=== PATIENT | male | born 1970 | race Caucasian/White ===

== ENCOUNTER 2019-04-08 13:01 | Inpatient (IN) ==
[2019-04-08] MEDS ORDERED: ZOFRAN IV ONE (13:32)
[2019-04-08] MEDS ORDERED: M.V.I.-12 10 ML, FOLIC ACID 1 MG, MAGNESIUM SULFATE 1 GM, THIAMINE 100 MG in NS 1,000 ML IV ONE (13:32)
[2019-04-08] MEDS ORDERED: ATIVAN IV ONE ×2 (13:32→14:33)
[2019-04-08 13:43] LABS: URINE SOURCE CLEAN CATCH
[2019-04-08 13:47] LABS: BILIRUBIN URINE NEGATIVE (NEGATIVE); BLOOD URINE TRACE (NEGATIVE); COLOR YELLOW; GLUCOSE URINE NEGATIVE (NEGATIVE); KETONE URINE NEGATIVE (NEGATIVE); LEUKOCYTES URINE NEGATIVE (NEGATIVE); NITRITE URINE NEGATIVE (NEGATIVE); PROTEIN URINE 30 mg/dL (NEGATIVE); SP GRAVITY URINE 1.006; TURBIDITY URINE CLEAR (CLEAR); UROBILINOGEN URINE NORMAL (NORMAL)
[2019-04-08 13:49] LABS: UR EPITHELIAL CELLS <10 /HPF (<10); URINE BACTERIA NEGATIVE /HPF; URINE RBC <10 /HPF (<10); URINE WBC <10 /HPF (<10)
[2019-04-08 14:03] LABS: BASO# 0.04 X1000 (0.0-0.2); BASO% 0.6 % (0.0-0.8); EOS# 0.02 X1000 (0.0-0.7); EOS% 0.3 % (0.0-10.0); HEMATOCRIT 54.3 % (42.0-52.0); HEMOGLOBIN 19.7 g/dL (14.0-18.0); LYMPH# 1.73 X1000 (1.2-3.4); LYMPH% 26.5 % (20.5-51.1); MCHC 36.3 g/dL (33-37); MCV 93.8 FL (81-99); MONO# 0.57 X1000 (0.11-0.59); MONO% 8.7 % (1.7-9.3); MPV 9.1 FL (7.4-10.4); NEUT# 4.17 X1000 (1.4-6.5); NEUT% 63.9 % (42.2-75.2); PLT 180 X1000 (130-400); RBC 5.79 XMIL (4.7-6.1); RDW 12.4 % (11.5-14.5); WBC 6.53 X1000 (4.8-10.8)
[2019-04-08 14:14] LABS: UR AMPHETAMINES QUAL NONE DETECTED (NONE DETECT); UR BARBITUATES QUAL NONE DETECTED (NONE DETECT); UR BENZODIAZEPIN QUAL NONE DETECTED (NONE DETECT); UR CANNABINOIDS QUAL PRESUMPTIVE POSITIVE (NONE DETECT); UR COCAINE QUAL NONE DETECTED (NONE DETECT); UR METHADONE QUAL NONE DETECTED (NONE DETECT); UR OPIATES QUAL NONE DETECTED (NONE DETECT); UR OXYCODONE QUAL NONE DETECTED (NONE DETECT); UR PCP QUAL NONE DETECTED (NONE DETECT)
[2019-04-08 14:25] LABS: ACETAMINOPHEN < 1.2 ug/mL (10-30); AGAP 20; ALB/GLOB RATIO 1.2; ALBUMIN 4.9 g/dL (3.5-5.0); ALKALINE PHOSPHATASE 98 U/L (32-122); BUN 10 mg/dL (8-22); CALCIUM 9.8 mg/dL (8.8-10.2); CHLORIDE 96 mmol/L (98-107); COSMO 276; CREATININE 0.7 mg/dL (0.7-1.2); ESTIMATED GFR > 60; GLUCOSE 117 mg/dL (70-104); GOT 125 U/L (10-34); GPT 61 U/L (10-44); LIPASE 63 U/L (13-60); MAGNESIUM 1.8 mg/dL (1.5-2.7); POTASSIUM 3.8 mmol/L (3.5-5.1); SALICYLATES < 3.00 mg/dL (3-10); SODIUM 138 mmol/L (136-145); TCO2 22 mmol/L (25-35); TOTAL BILIRUBIN 0.55 mg/dL (0.20-1.00); TOTAL PROTEIN 9.1 g/dL (6.3-8.3)
[2019-04-08 14:31] LABS: ACETONE SERUM NEGATIVE (NEGATIVE)
[2019-04-08] MEDS ORDERED: NICODERM PATCH TD ONE (14:34)
--- NOTE | 2019-04-08 14:39 | PROVIDER DOCUMENTATION ---
This chart was entered by Dinorah Franco Scribe, acting as scribe for Cole Longoria MD. [id number] Abuse/Overdose - General Chief Complaint: Req. Detox Stated Complaint: PSYCH DETOX Time Seen by Provider: 04/08/19 13:15 Source: patient Allergies/Adverse Reactions: Allergies Allergy/AdvReac Type Severity Reaction Status Date / Time meloxicam [From Mobic] Allergy Mild RASH Verified 01/14/17 08:52 Home Medications: Home Medication List Medication Instructions Recorded Confirmed Last Taken Type Celecoxib [Celebrex] 200 mg PO DAILY 01/14/17 01/14/17 Unknown History Metformin [Glucophage] 500 mg PO DAILY 01/14/17 01/14/17 Unknown History - History of Present Illness-Drug/Alcohol Nature of Presenting Problem: Patient is a 48 year old male who presents with tremors, nausea, vomiting and suicidal thoughts. States he is detoxing from alcohol. Reports he drinks 8 to 12 beers daily. States having a beer 1 hours ago. Denies hallucinations. This episode of drinking or use began:: this afternoon Severity: reports: mild Situational problems related to:: reports: N/A Psychiatric Complaints: reports: suicidal ideation Associated Symptoms: reports: nausea, vomiting, other (tremors) Any injuries associated with this episode of intoxication?: No Similar Symptoms Previously?: Yes Recently seen or treated by another doctor?: Yes - Substance Abuse Substance Use: reports: alcohol - Alcohol Abuse Last Drink?: 12:00 Usually drinks:: daily Review of Systems - Adult - REVIEW OF SYSTEMS - ADULT Constitutional: reports: no symptoms reported. denies: chills, fever, fatique Eyes: reports: no symptoms reported Ears, Nose, Mouth & Throat: reports: no symptoms reported Cardiovascular: reports: no symptoms reported Respiratory: reports: no symptoms reported Gastrointestinal: reports: see HPI, nausea, vomiting. denies: abdominal pain, diarrhea Genitourinary: reports: no symptoms reported Musculoskeletal: reports: no symptoms reported Integumentary: reports: no symptoms reported Neurological: reports: see HPI, tremors. denies: dizziness/vertigo, headache/migraines Psychiatric: reports: see HPI, suicidal thoughts. denies: anxiety, insomnia Endocrine: reports: no symptoms reported Hematologic/Lymphatic: reports: no symptoms reported Allergic/Immunologic: reports: no symptoms reported All Other Systems: Reviewed and Negative Past History - Adult - PAST MEDICAL HISTORY-ADULT Review of Records: reports: Old Records Reviewed, Nursing Assessment Review, Medications Reviewed, Social history reviewed & non-contributory. Major Childhood Illnesses: reports: denies history Cardiovascular: reports: HTN Respiratory: reports: denies history Gastrointestinal: reports: denies history Obstetrical/Gynecological: reports: denies history Genitourinary: reports: denies history Musculoskeletal: reports: chronic pain, intervertebral disc disease Neurological: reports: denies history Psychiatric: reports: anxiety Endocrine/Immune: reports: Diabetes Other Conditions: reports: other - PRIOR SURGERIES/PROCEDURES Surgical/Procedure History: reports: back/neck (back) - IMMUNIZATION STATUS Childhood Immunizations: See Nurse Assessment Flu Vaccine: See Nurse Assessment - FAMILY HISTORY Family History: reviewed, not pertinent, diabetes - SOCIAL HISTORY Smoking: cigarettes, greater than 1 pack/day Provider spent 3-5 mins advising pt. on dangers of tobacco.: Discussed manners to quit use, and f/u contacts for add'l counseling. Substance Use: alcohol Alcohol Use Frequency: every day Number of drinks per typical drinking period:: 11-15 drinks Physical Exam-General - PHYSICAL EXAM-ADULT Initial Vital Signs Reviewed: Yes - CONSTITUTIONAL General Appearance: alert, anxious. negative: lethargic - EYES Eyes: PERRL/EOMI, pink conjunctivae. negative: scleral icterus - HEAD, EARS, NOSE, MOUTH & THROAT HENMT: normocephalic/atraumatic, moist mucous membranes. negative: angioedema - RESPIRATORY Respiratory: chest non-tender, lungs clear, normal breath sounds. negative: rales, rhonchi - CARDIOVASCULAR Cardiovascular: normal peripheral pulses, tachycardia. negative: regular rate, rhythm - GASTROINTESTINAL (ABDOMEN) Abdominal Exam: normal bowel sounds, non tender, soft. negative: guarding - MUSCULOSKELETAL Extremity: normal inspection. negative: deformity, erythema - SKIN Integumentary: normal color, normal turgor, warm/dry. negative: cyanosis, ecchymosis, jaundice - NEUROLOGIC Neurologic: other (tremors to bilateral hands). negative: aphasia, facial droop - PSYCHIATRIC Psych/Mental Status: oriented x 3, anxious. negative: paranoid Progress - PLAN OF CARE/RESULTS Progress/Plan/Lab Results: Vital Signs - 8 hr 04/08/19 13:10 Temperature 98.0 F Pulse Rate 126 H Respiratory Rate 24 Blood Pressure 156/119 O2 Sat by Pulse Oximetry 96 Laboratory Results - last 24 hr 04/08/19 04/08/19 04/08/19 13:27 13:27 13:27 WBC 6.53 RBC 5.79 Hgb 19.7 H Hct 54.3 H MCV 93.8 MCH 34.0 H MCHC 36.3 RDW Std Deviation 12.4 Plt Count 180 MPV 9.1 Immature Gran % (Auto) 0.0 Neut % (Auto) 63.9 Lymph % (Auto) 26.5 Hampton % (Auto) 8.7 Eos % (Auto) 0.3 Baso % (Auto) 0.6 Immature Gran # (Auto) 0.00 Neut # (Auto) 4.17 Lymph # (Auto) 1.73 Hampton # (Auto) 0.57 Eos # (Auto) 0.02 Baso # (Auto) 0.04 Sodium 138 Potassium 3.8 Chloride 96 L Carbon Dioxide 22 L Anion Gap 20 BUN 10 Creatinine 0.7 Estimated GFR/1.73 m2 > 60 BUN/Creatinine Ratio 14 Glucose 117 H Calculated Osmolality 276 Calcium 9.8 Magnesium 1.8 Total Bilirubin 0.55 AST 125 H ALT 61 H Alkaline Phosphatase 98 Ammonia Total Protein 9.1 H Albumin 4.9 Globulin 4.2 Albumin/Globulin Ratio 1.2 Lipase 63 H Urine Source Urine Color Urine Turbidity Urine pH Ur Specific Jewell Urine Protein Ur Glucose (Stick) Ur Ketones (Stick) Urine Blood Urine Nitrite Urine Bilirubin Urobilinogen Dipstick Urine Leukocytes Urine WBC (Auto) Urine RBC (Auto) U Epithel Cells (Auto) Urine Bacteria (Auto) Salicylates < 3.00 L Urine Opiates Screen Ur Oxycodone Screen Ur Methadone, Qual Acetaminophen < 1.2 L Ur Barbiturates Screen Ur Phencyclidine Scrn Ur Amphetamines Screen U Benzodiazepines Scrn Urine Cocaine Screen U Cannabinoids Screen Plasma/Serum Ethyl Alc 284 H Acetone Level NEGATIVE 04/08/19 04/08/19 04/08/19 13:27 13:27 13:51 WBC RBC Hgb Hct MCV MCH MCHC RDW Std Deviation Plt Count MPV Immature Gran % (Auto) Neut % (Auto) Lymph % (Auto) Hampton % (Auto) Eos % (Auto) Baso % (Auto) Immature Gran # (Auto) Neut # (Auto) Lymph # (Auto) Hampton # (Auto) Eos # (Auto) Baso # (Auto) Sodium Potassium Chloride Carbon Dioxide Anion Gap BUN Creatinine Estimated GFR/1.73 m2 BUN/Creatinine Ratio Glucose Calculated Osmolality Calcium Magnesium Total Bilirubin AST ALT Alkaline Phosphatase Ammonia 38 Total Protein Albumin Globulin Albumin/Globulin Ratio Lipase Urine Source CLEAN CATCH Urine Color YELLOW Urine Turbidity CLEAR Urine pH 6.0 Ur Specific Jewell 1.006 Urine Protein 30 A Ur Glucose (Stick) NEGATIVE Ur Ketones (Stick) NEGATIVE Urine Blood TRACE A Urine Nitrite NEGATIVE Urine Bilirubin NEGATIVE Urobilinogen Dipstick NORMAL Urine Leukocytes NEGATIVE Urine WBC (Auto) <10 Urine RBC (Auto) <10 U Epithel Cells (Auto) <10 Urine Bacteria (Auto) NEGATIVE Salicylates Urine Opiates Screen NONE DETECTED Ur Oxycodone Screen NONE DETECTED Ur Methadone, Qual NONE DETECTED Acetaminophen Ur Barbiturates Screen NONE DETECTED Ur Phencyclidine Scrn NONE DETECTED Ur Amphetamines Screen NONE DETECTED U Benzodiazepines Scrn NONE DETECTED Urine Cocaine Screen NONE DETECTED U Cannabinoids Screen PRESUMPTIVE POSITIVE A Plasma/Serum Ethyl Alc Acetone Level Orders Category Date Time Status ACETAMINOPHEN [TDM] Stat Lab 04/08/19 13:27 Completed ACETONE SERUM [CHEM] Stat Lab 04/08/19 13:27 Completed ALCOHOL BLOOD Stat Lab 04/08/19 13:27 Completed AMMONIA [CHEM] Stat Lab 04/08/19 13:51 Completed CBC WITH DIFF [HEME] Stat Lab 04/08/19 13:27 Completed COMPREHENSIVE METABOLIC PANEL [CHEM] Stat Lab 04/08/19 13:27 Completed LIPASE [CHEM] Stat Lab 04/08/19 13:27 Completed MAGNESIUM [CHEM] Stat Lab 04/08/19 13:27 Completed SALICYLATES [TDM] Stat Lab 04/08/19 13:27 Completed UA NIMS W/REFLEX CULT [URINALYSIS] Stat Lab 04/08/19 13:27 Completed URINE DRUG SCREEN Stat Lab 04/08/19 13:27 Completed Lorazepam [Ativan] Med 04/08/19 13:32 Discontinued 2 mg IV NOW ONE Lorazepam [Ativan] Med 04/08/19 14:33 Discontinued 2 mg IV NOW ONE Mvi [M.v.i.-12] 10 ml Med 04/08/19 13:32 Discontinued Folic Acid 1 mg Magnesium Sulfate 1 gm Thiamine 100 mg 0.9% Sodium Chloride Inj [Ns] 1,000 ml IV NOW Nicotine Patch [Nicoderm Patch] Med 04/08/19 14:34 Discontinued 14 mg TD NOW ONE Ondansetron [Zofran] Med 04/08/19 13:32 Discontinued 4 mg IV NOW ONE Result Diagrams: 04/08/19 13:27 04/08/19 13:27 - REASSESSMENT Reassessment #1 Time Reassessed: 14:39 Status: improving (STILL SHAKY AND TREMULOUS IN ER. WILL ADMIT) - CONSULTS/PCP/HOSPITALIST Notification #1 *Consult/PCP/Hospitalist*: AISSATOU Richmond for Hospitalist Time Discussed: 14:35 Reason/Comments: Dr. Longoria consulted with Yi about patient. Consult Disposition: Will see in ED, Admit Departure - Departure Date of Disposition Decision: 04/08/19 Time of Disposition Decision: 14:36 DIAGNOSIS: Alcohol withdrawal Disposition: ADMITTED INPATIENT 09 Certified Medical Emergency: Emergent Condition: Stable Referrals and Follow-Ups: Franco Stockton Jr, MD [Primary Care Provider] - - Critical Care Note This patient required my direct & personal management of CC.: No Attestation - Physician/ TOMMIE Attestation Patient care was provided by Advanced Practice Provider:: No The physician spent face to face time with patient:: Yes Advanced Practice Provider documentation review:: Supervising physician onsite and consulted in the evaluation and care of this patient. The physician did have a face to face encounter with the patient. This chart was documented by the indicated scribe, (Dinorah Franco Scribe) and accurately reflects the services I performed and decisions made by me, Cole Longoria MD, as attested by the provider's signature.
[2019-04-08] MEDS ORDERED: ZOFRAN IV PRN (15:26)
[2019-04-08] MEDS ORDERED: ROBAXIN PO PRN (15:29)
[2019-04-08] MEDS ORDERED: ATARAX PO PRN (15:29)
[2019-04-08] MEDS ORDERED: BENTYL PO PRN (15:29)
[2019-04-08] MEDS ORDERED: CATAPRES PO PRN (15:34)
--- NOTE | 2019-04-08 16:24 | HISTORY AND PHYSICAL ---
CHIEF COMPLAINT: I am going through alcohol withdrawal. HISTORY OF PRESENT ILLNESS: This is a 48-year-old gentleman with a history of insulin dependent diabetes mellitus type 2 and alcohol use and abuse. He presents to the emergency room complaining of tremors, nausea, vomiting and suicidal thoughts. He states that he normally drinks 12 to 24 beers a day although over the last week he has got down to 8 to 12 beers trying to detox himself but says that he realizes he cannot do this. He has developed tremors with nausea, vomiting. He started having diarrhea during the night last night. He does state that he does not want to live like this. He states he does not have a plan to kill himself although he does not think life is worth living and he does not want continue living with alcohol. He denies any black or bloody vomitus or stools. PAST MEDICAL HISTORY: Hypertension, diabetes mellitus type 2, chronic back pain. PAST SURGICAL HISTORY: Back surgery. SOCIAL HISTORY: He drinks 12 to 24 beers a day. He smokes 1 to 2 packs of cigarettes a day and he does use marijuana. He has used meth in the past. ALLERGIES: Meloxicam which causes a rash. HOME MEDICATIONS: None. REVIEW OF SYSTEMS: Discussed with patient with pertinent positives stated in the HPI. He denied any syncope, dizziness, chest pain, palpitations, any shortness of breath, cough, fever, chills, night sweats, recent weight loss or weight gain, any constipation, black or bloody vomitus or stools, hematuria, dysuria, frequency, urgency. PHYSICAL EXAMINATION: GENERAL: This is a 48-year-old gentleman who is sitting up in bed in mild distress. VITAL SIGNS: Blood pressure was 160/100 with a heart rate of 131, respirations are 22, temperature is 98 degrees, room air saturations 96 to 100 percent. HEENT: Pupils equal, round, react to light EOMs are intact sclerae anicteric. Head is normocephalic, atraumatic. Mucous membranes are moist. NECK: Supple. Trachea midline. CARDIOVASCULAR: Regular rate and rhythm. He is tachycardic. S1, S2 appreciated. No murmurs. Calves are nontender bilateral, peripheral pulses palpable x4 extremities. PULMONARY: Breath sounds clear. No increased work of breathing noted. Chest rises and falls symmetric respiration. GASTROINTESTINAL: Abdomen soft, nontender, nondistended with bowel sounds in all 4 quadrants. : He has no CVA or suprapubic tenderness. SKIN: Warm and dry. NEUROLOGIC: He is alert, oriented x3. He does have tremors noted to bilateral hands. LABS: WBC is 6.5 with hemoglobin 19.7, hematocrit 53 and platelets of 180,000. Sodium 138, potassium 3.8, BUN 10, creatinine 0.7 with a glucose of 117. AST is 125, ALT 61 with a lipase of 63. Urine drug screen is presumptive positive for cannabinoids. Blood alcohol is 284. Acetone is negative. ASSESSMENT AND PLAN: 1. Alcohol withdrawal. 2. Nausea, vomiting and diarrhea secondary to #1. 3. Cannabinoid use. 4. Diabetes mellitus type 2 with noncompliance. 5. Hypertension noncompliant. 6. Deep vein thrombosis prophylaxis and gastrointestinal prophylaxis. 7. Suicidal ideation.Once the patient is medically cleared will call Milly Kraus for evaluation. Patient will be admitted to the ICU for close monitoring. continue with IV hydration, giving Zofran for nausea. start a Librium taper and Ativan IV q.4 hours p.r.n., clonidine 0.1 q.8 hours p.r.n. for his blood pressure, this will also help with his withdrawal. Bentyl, Atarax and Robaxin for withdrawal symptoms p.r.n. pattern blood glucose with sliding scale insulin. ammonia level, get CBC, CMP, magnesium and lipase in the morning. NPO as long as he is having nausea, vomiting. deep vein thrombosis prophylaxis will use SCDs. Will hold off on any anticoagulation as we are unsure his status with varices. gastrointestinal prophylaxis Protonix IV. Plan was discussed with Dr. Howard. Further treatments pending hospital course. Dictated by AISSATOU Orellana for Froylan Howard MD cc: AISSATOU Orellana Agree with the above. the following is my own face to face assessment. moderately tremulous and slightly tachycardic on exam. likely mild alcohol withdrawal. some question of suicidal ideation in the ED but on my discussion with him patient states that he is "tired of living like this," but states that this has motivated him to seek help for his alcoholism rather than made him suicidal. he denies suicidal ideation, he denies plan to hurt himself or others. also discussed with patient's who denies hearing him say anything that would suggest he planned on hurting himself. BRAN
[2019-04-08] MEDS: HUMALOG SUBQ SCH ×2 (16:57→23:07)
[2019-04-08] MEDS: NS 1,000 ML IV SCH (17:03)
[2019-04-08] MEDS: LIBRIUM PO SCH ×2 (17:04→23:06)
[2019-04-08] MEDS: SODIUM CHLORIDE 0.9% INJ SCH (17:04)
[2019-04-08] MEDS: PROTONIX IV SCH (17:04)
[2019-04-08] MEDS: ATIVAN IV PRN (23:06)
[2019-04-09] MEDS: NS 1,000 ML IV SCH ×5 (00:32→22:51)
[2019-04-09] MEDS: PROTONIX IV SCH ×2 (03:55→15:44)
[2019-04-09] MEDS: LIBRIUM PO SCH ×4 (04:01→22:52)
[2019-04-09 05:13] LABS: BASO# 0.03 X1000 (0.0-0.2); BASO% 0.5 % (0.0-0.8); EOS# 0.11 X1000 (0.0-0.7); EOS% 1.9 % (0.0-10.0); HEMATOCRIT 48.4 % (42.0-52.0); HEMOGLOBIN 17.1 g/dL (14.0-18.0); LYMPH% 23.9 % (20.5-51.1); MCH 33.9 PG (27-31); MCHC 35.3 g/dL (33-37); MCV 95.8 FL (81-99); MONO# 0.63 X1000 (0.11-0.59); MONO% 10.8 % (1.7-9.3); MPV 9.4 FL (7.4-10.4); NEUT# 3.68 X1000 (1.4-6.5); NEUT% 62.9 % (42.2-75.2); PLT 133 X1000 (130-400); RBC 5.05 XMIL (4.7-6.1); RDW 12.4 % (11.5-14.5); WBC 5.85 X1000 (4.8-10.8)
[2019-04-09 05:43] LABS: AGAP 14; ALB/GLOB RATIO 1.1; ALBUMIN 3.6 g/dL (3.5-5.0); ALKALINE PHOSPHATASE 70 U/L (32-122); BUN 10 mg/dL (8-22); CALCIUM 8.2 mg/dL (8.8-10.2); CHLORIDE 103 mmol/L (98-107); COSMO 279; CREATININE 0.6 mg/dL (0.7-1.2); ESTIMATED GFR > 60; GLUCOSE 70 mg/dL (70-104); GOT 103 U/L (10-34); GPT 48 U/L (10-44); MAGNESIUM 1.6 mg/dL (1.5-2.7); POTASSIUM 3.7 mmol/L (3.5-5.1); SODIUM 141 mmol/L (136-145); TCO2 24 mmol/L (25-35); TOTAL PROTEIN 6.8 g/dL (6.3-8.3)
[2019-04-09] MEDS: HUMALOG SUBQ SCH ×4 (06:07→22:53)
[2019-04-09] MEDS: ATIVAN IV PRN ×3 (07:56→21:22)
--- NOTE | 2019-04-09 09:06 | Diag Imaging Result Doc PS360 ---
EXAM: CHEST-PORTABLE 04/09/2019 HISTORY: cough, borderline hypoxia TECHNIQUE: AP portable at 0848 COMMENT: There is ill-defined opacity in the right lower lobe which appears worse than on 07/03/2016. The heart size and primary vascularity are within normal limits. IMPRESSION: Minimal pneumonia right lower lobe. Electronically signed by Klaus Corado 04/09/2019 9:04 AM
[2019-04-09] MEDS: PAXIL PO SCH (09:42)
[2019-04-09] MEDS: NICODERM PATCH TD SCH (12:25)
[2019-04-09] MEDS ORDERED: ROCEPHIN 1 GM in NS 50 ML IV SCH (13:45)
--- NOTE | 2019-04-09 14:07 | PROGRESS NOTE ---
DATE: 04/09/2019 INTERVAL HISTORY: Patient reports some generalized malaise and a couple episodes diarrhea this morning which has improved. No vomiting, minimal tremulousness. The patient does both today and yesterday has endorsed feeling depressed but continues to deny any suicidal thoughts. Denies ever having a plan. His corroborates that she is unaware of any statements suggesting that he wanted to hurt himself or others. On admission he did say that he was tired of living this way but seemed to be suggesting that he wanted to change what he was doing rather than end his life. REVIEW OF SYSTEMS: Twelve point review of systems negative except as per interval history. LABS: WBC 5.8, hemoglobin 17.1, hematocrit 48.4, platelets 133,000. Sodium 141, potassium 3.7, BUN 10, creatinine 0.6, glucose 70, mag 1.6, bilirubin 0.9, AST 103, ALT 48, alkaline phosphatase 70. IMAGING: Chest x-ray, minimal pneumonia and right lower lobe. VITALS: T-max 97.8 degrees, pulse 76, respirations 18, BP 138/88, O2 saturation 99% on room air currently, down to 90% earlier with respiratory rate of 27. PHYSICAL EXAMINATION: General: No acute distress. Vitals above. HEENT: Normocephalic, atraumatic. Moist membranes. No scleral icterus. Cardiovascular: Regular rate and rhythm. No murmurs noted. Pulmonary: Slight right basilar crackles otherwise clear to auscultation. Abdomen: Soft, nontender, nondistended. Bowel sounds positive. Extremities: Peripheral pulses intact. No clubbing, cyanosis. Neurologic: Cranial nerves grossly intact. Mild tremor in the hands and a resting tremor. No focal deficits. Psychiatric: Normal mood and affect. No signs of hallucinations. Oriented x3. Skin: No new rashes or lesions identified. ASSESSMENT AND PLAN: 1. Alcohol dependence and withdrawal. Patient still some mild withdrawal symptoms with occasional tachycardia and ongoing tremulousness but current medication seems to be controlling his symptoms reasonably well, did have couple episodes of diarrhea this morning but has not been repeated since then. Continue to treat with Librium and symptomatic control. 2. Possible pneumonia, patient with some borderline hypoxia overnight and increased respiratory rate. Some slight crackles on exam. Chest x-ray obtained which does seem to show slight right lower lobe pneumonia. Will go and start him on Rocephin and azithromycin and monitor. Does not appear to be septic at this time. 3. Tobacco abuse, possibly early chronic obstructive pulmonary disease. The patient counseled on cessation and been given nicotine patch. 4. Diabetes. Patient only metformin and at a low dose at home. Glucoses here have been reasonably well controlled without any insulin but will monitor as he begins to eat more. 5. Hypertension reasonable control on current regimen, monitor. 6. Transaminitis. Patient with likely early cirrhosis and mild alcoholic hepatitis. Liver function tests are roughly stable. No need for acute intervention at this time. [facility]
[2019-04-09] MEDS ORDERED: ZITHROMAX 500 MG/NS 500 MG/250 ML IVPB IV SCH (15:00)
[2019-04-09] MEDS: SODIUM CHLORIDE 0.9% INJ SCH (15:44)
[2019-04-10] MEDS: ATIVAN IV PRN ×2 (02:15→06:44)
[2019-04-10] MEDS: PROTONIX IV SCH (04:14)
[2019-04-10] MEDS: LIBRIUM PO SCH (04:14)
[2019-04-10 06:40] LABS: BASO# 0.03 X1000 (0.0-0.2); BASO% 0.6 % (0.0-0.8); EOS# 0.08 X1000 (0.0-0.7); EOS% 1.6 % (0.0-10.0); HEMATOCRIT 46.7 % (42.0-52.0); HEMOGLOBIN 16.4 g/dL (14.0-18.0); LYMPH# 0.92 X1000 (1.2-3.4); LYMPH% 18.4 % (20.5-51.1); MCHC 35.1 g/dL (33-37); MCV 96.7 FL (81-99); MONO# 0.49 X1000 (0.11-0.59); MONO% 9.8 % (1.7-9.3); MPV 9.4 FL (7.4-10.4); NEUT# 3.49 X1000 (1.4-6.5); NEUT% 69.6 % (42.2-75.2); PLT 122 X1000 (130-400); RBC 4.83 XMIL (4.7-6.1); RDW 12.2 % (11.5-14.5); WBC 5.01 X1000 (4.8-10.8)
[2019-04-10] MEDS: NS 1,000 ML IV SCH (06:47)
[2019-04-10] MEDS: HUMALOG SUBQ SCH (06:49)
[2019-04-10 06:57] LABS: AGAP 14; ALB/GLOB RATIO 1.2; ALBUMIN 3.8 g/dL (3.5-5.0); ALKALINE PHOSPHATASE 72 U/L (32-122); BUN 7 mg/dL (8-22); CALCIUM 8.9 mg/dL (8.8-10.2); CHLORIDE 103 mmol/L (98-107); COSMO 277; CREATININE 0.7 mg/dL (0.7-1.2); ESTIMATED GFR > 60; GLUCOSE 88 mg/dL (70-104); GOT 72 U/L (10-34); GPT 42 U/L (10-44); POTASSIUM 3.9 mmol/L (3.5-5.1); SODIUM 140 mmol/L (136-145); TCO2 23 mmol/L (25-35); TOTAL BILIRUBIN 0.87 mg/dL (0.20-1.00); TOTAL PROTEIN 7.1 g/dL (6.3-8.3)
[2019-04-10 07:55] VITALS: BP 137/90
[2019-04-10] MEDS: PAXIL PO SCH (08:27)
[2019-04-10] MEDS: NICODERM PATCH TD SCH (08:27)
--- NOTE | 2019-04-10 14:42 | DISCHARGE SUMMARY ---
ADMISSION DATE: 04/08/2019 DISCHARGE DATE: 04/10/2019 DATE OF LEAVING AGAINST MEDICAL ADVICE: 04/10/2019. ADMISSION DIAGNOSES: 1. Alcohol withdrawal. 2. Nausea, vomiting, and diarrhea secondary to #1. 3. Cannabinoid use. 4. Diabetes mellitus type 2 with noncompliance. 5. Hypertension, noncompliance. 6. Suicidal ideation. DIAGNOSES AT TIME OF LEAVING AGAINST MEDICAL ADVICE: 1. Alcohol dependence with withdrawal. 2. Possible pneumonia. Borderline hypoxia overnight and increased respiratory rate. Possible right lower lobe pneumonia. 3. Tobacco abuse with possible early chronic obstructive pulmonary disease. 4. Diabetes, reasonably controlled. 5. Hypertension, uncontrolled. 6. Transaminitis. Possible early cirrhosis with mild alcoholic hepatitis. CONSULTATIONS: None. SURGERIES AND PROCEDURES: None. HOSPITAL COURSE: On 04/08/2019, Mr. Surinder Stratton, who is a 48-year-old male with a medical history of insulin-dependent diabetes mellitus type 2 and alcohol abuse and use, presented to the emergency department with complaints of tremors, nausea, vomiting, suicidal ideations. Stated that he normally drinks 12 to 24 beers per day but had not been able to drink but maybe 8 to 12 trying to detox himself and developed tremors, nausea, vomiting along with diarrhea. Stated that he did not want to live like that but did not have a plan to kill himself. He does not feel that life is worth living and did not want to continue living with alcohol. He was admitted to ICU for close observation to evaluate suicidal ideations and allow for alcohol withdrawal detox. He had a chest x-ray, which showed possible right lower lobe pneumonia although white blood cells remain stable. By the 2nd day, the suicidal thoughts were denied. It was more of a suggestion that he just did not want to live his life with alcohol rather than end his life. Over his 1st night in the hospital, he did have some mild borderline hypoxia, it did not require oxygen, and had some slight crackles, and the chest x-ray revealed that he had a right lower lobe pneumonia. He was initiated on Rocephin and azithromycin, was transferred on day 2 to the medical floor. Remained stable but decided he would leave against medical advice this morning despite the need for antibiotic therapy. DISCHARGE VITAL SIGNS: Temperature 97.4 degrees, heart rate 71, respiratory rate 20, blood pressure 137/90, O2 saturation 98% on room air. LAB DATA: White blood cells 5000, hemoglobin 16, hematocrit 46, platelet count 122. Sodium 140, potassium 3.9, BUN 7, creatinine 0.7, glucose 88, calcium 8.9, bilirubin 0.87, AST 72, ALT 42. IMAGING: Chest x-ray on 04/09/2019. Minimal pneumonia, right lower lobe. EKG was not performed. The telemetry showed normal sinus rhythm. DISCHARGE MEDICATIONS: Include: 1. Levaquin 750 mg p.o. daily for 7 days. 2. Paxil 10 mg p.o. daily. 3. ReVia (naltrexone) 50 mg p.o. daily. 4. Diabetic medications were not clarified. DISCHARGE DIET: Diabetic. DISCHARGE ACTIVITY: As tolerated. DISCHARGE INSTRUCTIONS: He did not remain in the hospital to receive discharge instructions. DISCHARGE DISPOSITION: Again, he left against medical advice. Dictated by AISSATOU Moreno for Froylan Howard MD cc: AISSATOU Moreno Agree with the above. the following is my own face to face assessment. patient etoh withdrawal symptoms resolved but still on benzos just prior to discharge. discussed with patient that once those wear off he may go back into withdrawal. he continued to remain adamant in his decision to leave AMA. BRAN
== END 2019-04-10 11:09 | disposition left against medical advice (07) | DRG 894 ==
LOC: ED 13:01 → ICU 15:49 → 3N 04-09 11:14
PROVIDERS: ATTEND Internal Medicine

== ENCOUNTER 2019-05-05 13:54 | Inpatient (IN) ==
[2019-05-05] MEDS ORDERED: ATIVAN IV ONE (14:09)
[2019-05-05] MEDS ORDERED: M.V.I.-12 10 ML, FOLIC ACID 1 MG, MAGNESIUM SULFATE 1 GM, THIAMINE 100 MG in NS 1,000 ML IV ONE (14:10)
[2019-05-05] MEDS ORDERED: CATAPRES PO ONE (14:22)
[2019-05-05] MEDS ORDERED: NS 1,000 ML IV ONE ×2 (14:22→16:08)
--- NOTE | 2019-05-05 14:24 | PROVIDER DOCUMENTATION ---
[id number] Abuse/Overdose - General Chief Complaint: Alcohol Withdrawal Stated Complaint: ALCOHOL TOXICITY Time Seen by Provider: 05/05/19 14:08 Source: patient Allergies/Adverse Reactions: Allergies Allergy/AdvReac Type Severity Reaction Status Date / Time meloxicam [From Mobic] Allergy Mild RASH Verified 01/14/17 08:52 Home Medications: Home Medication List Medication Instructions Recorded Confirmed Last Taken Type NK [No Home Medications] 05/05/19 05/05/19 Unknown History - History of Present Illness-Drug/Alcohol Nature of Presenting Problem: 48 yr old M, hx of alcohol abuse, presents with 3-4 hr duration of nausea, vomiting, diarrhea, and generalized body tremors. Pt has a hx of significant alcohol abuse, with previous hospital admissions for alcohol withdrawal. He reports that in the past few days he has been trying to cut back on his usual alcohol intake (which can be anywhere from 10-12 beers daily), but he began experiencing the nausea, vomiting and diarrhea this morning, despite having a drink at 10AM, which led him to the ED. He denies audio or visual hallucinations. He states he needs help with rehab. This episode of drinking or use began:: 1-3 hours ago Severity: reports: moderate Associated Symptoms: reports: diarrhea, nausea, vomiting Any injuries associated with this episode of intoxication?: No - Substance Abuse Substance Use: reports: alcohol - Alcohol Abuse Last Drink?: 10:00 Type and amount of last drink?: Beer Usually drinks:: daily - Detox/Hospitalizations Previous detox/rehab admissions?: Yes (10 yrs ago) Review of Systems - Adult - REVIEW OF SYSTEMS - ADULT Constitutional: reports: no symptoms reported Eyes: reports: no symptoms reported Ears, Nose, Mouth & Throat: reports: no symptoms reported Cardiovascular: reports: no symptoms reported Respiratory: reports: no symptoms reported Gastrointestinal: reports: abdominal pain, diarrhea, nausea, vomiting Genitourinary: reports: no symptoms reported Neurological: reports: tremors Past History - Adult - PAST MEDICAL HISTORY-ADULT Review of Records: reports: Old Records Reviewed, Nursing Assessment Review, Me dications Reviewed Major Childhood Illnesses: reports: denies history Cardiovascular: reports: denies history Respiratory: reports: denies history Gastrointestinal: reports: denies history Obstetrical/Gynecological: reports: denies history Genitourinary: reports: denies history Musculoskeletal: reports: chronic pain, intervertebral disc disease Neurological: reports: denies history Psychiatric: reports: anxiety Endocrine/Immune: reports: denies history Other Conditions: reports: other - PRIOR SURGERIES/PROCEDURES Surgical/Procedure History: reports: back/neck - IMMUNIZATION STATUS Childhood Immunizations: See Nurse Assessment Flu Vaccine: See Nurse Assessment - FAMILY HISTORY Family History: reviewed, not pertinent, diabetes - SOCIAL HISTORY Smoking: greater than 1 pack/day Provider spent 3-5 mins advising pt. on dangers of tobacco.: Discussed manners to quit use, and f/u contacts for add'l counseling. Substance Use: alcohol Alcohol Use Frequency: every day Number of drinks per typical drinking period:: 11-15 drinks Living Situation: family Physical Exam-General - PHYSICAL EXAM-ADULT Initial Vital Signs Reviewed: Yes - CONSTITUTIONAL General Appearance: alert, mild distress - EYES Eyes: PERRL/EOMI - HEAD, EARS, NOSE, MOUTH & THROAT HENMT: normocephalic/atraumatic - RESPIRATORY Respiratory: chest non-tender, lungs clear, normal breath sounds - CARDIOVASCULAR Cardiovascular: regular rate, rhythm - GASTROINTESTINAL (ABDOMEN) Abdominal Exam: normal bowel sounds, non tender, soft - SKIN Integumentary: diaphoresis - NEUROLOGIC Neurologic: no motor/sensory deficits - PSYCHIATRIC Psych/Mental Status: oriented x 3 Progress - PLAN OF CARE/RESULTS Progress/Plan/Lab Results: Vital Signs - 8 hr 05/05/19 14:01 05/05/19 14:10 05/05/19 14:11 Temperature 97.8 F Pulse Rate 93 H 72 Respiratory Rate 18 22 Blood Pressure 84/60 155/101 O2 Sat by Pulse Oximetry 97 97 97 05/05/19 14:15 05/05/19 14:16 05/05/19 14:30 Temperature Pulse Rate 93 H 81 81 Respiratory Rate 22 20 24 Blood Pressure 173/103 O2 Sat by Pulse Oximetry 97 97 96 05/05/19 14:39 05/05/19 14:45 05/05/19 14:46 Temperature Pulse Rate 77 84 Respiratory Rate 20 17 Blood Pressure 154/114 137/91 O2 Sat by Pulse Oximetry 95 05/05/19 14:47 05/05/19 14:56 05/05/19 15:00 Temperature Pulse Rate 74 71 67 Respiratory Rate 21 17 17 Blood Pressure 138/95 141/87 140/89 O2 Sat by Pulse Oximetry 93 L 94 L 05/05/19 15:15 05/05/19 15:30 05/05/19 15:31 Temperature Pulse Rate 68 72 71 Respiratory Rate 27 H 18 15 Blood Pressure 136/83 132/81 O2 Sat by Pulse Oximetry 93 L 97 96 05/05/19 15:45 05/05/19 16:00 05/05/19 16:01 Temperature Pulse Rate 66 71 66 Respiratory Rate 22 19 Blood Pressure 127/82 120/78 O2 Sat by Pulse Oximetry 93 L 98 95 05/05/19 16:15 05/05/19 16:16 05/05/19 16:30 Temperature Pulse Rate 62 68 65 Respiratory Rate 22 Blood Pressure 123/80 O2 Sat by Pulse Oximetry 95 95 95 05/05/19 16:31 Temperature Pulse Rate 69 Respiratory Rate 23 Blood Pressure 126/82 O2 Sat by Pulse Oximetry 94 L Laboratory Results - last 24 hr 05/05/19 05/05/19 05/05/19 14:44 14:44 14:44 WBC 5.79 RBC 5.33 Hgb 18.5 H Hct 50.6 MCV 94.9 MCH 34.7 H MCHC 36.6 RDW Std Deviation 13.0 Plt Count 120 L MPV 10.0 Immature Gran % (Auto) 0.0 Neut % (Auto) 71.7 Lymph % (Auto) 17.3 L [place] % (Auto) 10.5 H Eos % (Auto) 0.2 Baso % (Auto) 0.3 Immature Gran # (Auto) 0.00 Neut # (Auto) 4.15 Lymph # (Auto) 1.00 L [place] # (Auto) 0.61 H Eos # (Auto) 0.01 Baso # (Auto) 0.02 Sodium 141 Potassium 4.0 Chloride 96 L Carbon Dioxide 21 L Anion Gap 24 BUN 9 Creatinine 0.5 L Estimated GFR/1.73 m2 > 60 BUN/Creatinine Ratio 18 Glucose 107 H Calculated Osmolality 280 Calcium 9.5 Total Bilirubin 0.99 AST 352 H ALT 174 H Alkaline Phosphatase 94 Total Protein 8.1 Albumin 4.5 Globulin 3.6 Albumin/Globulin Ratio 1.3 Vitamin B12 TSH Urine Source Urine Color Urine Turbidity Urine pH Ur Specific [place] Urine Protein Ur Glucose (Stick) Ur Ketones (Stick) Urine Blood Urine Nitrite Urine Bilirubin Urobilinogen Dipstick Urine Leukocytes Urine WBC (Auto) Urine RBC (Auto) U Epithel Cells (Auto) Urine Bacteria (Auto) Urine Crystals Small Round Cells Urine Casts Urine Yeast-like Cells Urine Opiates Screen Ur Oxycodone Screen Ur Methadone, Qual Ur Barbiturates Screen Ur Phencyclidine Scrn Ur Amphetamines Screen U Benzodiazepines Scrn Urine Cocaine Screen U Cannabinoids Screen Plasma/Serum Ethyl Alc 168 H 05/05/19 05/05/19 05/05/19 14:44 15:02 15:02 WBC RBC Hgb Hct MCV MCH MCHC RDW Std Deviation Plt Count MPV Immature Gran % (Auto) Neut % (Auto) Lymph % (Auto) [place] % (Auto) Eos % (Auto) Baso % (Auto) Immature Gran # (Auto) Neut # (Auto) Lymph # (Auto) [place] # (Auto) Eos # (Auto) Baso # (Auto) Sodium Potassium Chloride Carbon Dioxide Anion Gap BUN Creatinine Estimated GFR/1.73 m2 BUN/Creatinine Ratio Glucose Calculated Osmolality Calcium Total Bilirubin AST ALT Alkaline Phosphatase Total Protein Albumin Globulin Albumin/Globulin Ratio Vitamin B12 800 TSH 0.79 Urine Source CLEAN CATCH Urine Color YELLOW Urine Turbidity CLEAR Urine pH 6.0 Ur Specific [place] 1.027 Urine Protein 100 A Ur Glucose (Stick) NEGATIVE Ur Ketones (Stick) 60 A Urine Blood TRACE A Urine Nitrite NEGATIVE Urine Bilirubin NEGATIVE Urobilinogen Dipstick 2 A Urine Leukocytes NEGATIVE Urine WBC (Auto) <10 Urine RBC (Auto) <10 U Epithel Cells (Auto) <10 Urine Bacteria (Auto) NEGATIVE Urine Crystals NONE SEEN Small Round Cells Not Reportable Urine Casts NONE SEEN Urine Yeast-like Cells NONE SEEN Urine Opiates Screen NONE DETECTED Ur Oxycodone Screen NONE DETECTED Ur Methadone, Qual NONE DETECTED Ur Barbiturates Screen NONE DETECTED Ur Phencyclidine Scrn NONE DETECTED Ur Amphetamines Screen NONE DETECTED U Benzodiazepines Scrn PRESUMPTIVE POSITIVE A Urine Cocaine Screen NONE DETECTED U Cannabinoids Screen PRESUMPTIVE POSITIVE A Plasma/Serum Ethyl Alc Orders Category Date Time Status ALCOHOL BLOOD Stat Lab 05/05/19 14:44 Completed CBC WITH ELECTRONIC DIFF [HEME] Stat Lab 05/05/19 14:44 Completed COMPREHENSIVE METABOLIC PANEL [CHEM] Stat Lab 05/05/19 14:44 Completed TSH Stat Lab 05/05/19 14:44 Completed URINALYSIS W/POSS RFLX CULT [URINALYSIS] Stat Lab 05/05/19 15:02 Completed URINE DRUG SCREEN Stat Lab 05/05/19 15:02 Completed URINE MANUAL MICROSCOPIC [URINALYSIS] Stat Lab 05/05/19 15:02 Completed VITAMIN B12 Stat Lab 05/05/19 14:44 Completed 0.9% Sodium Chloride Inj [Ns] 1,000 ml Med 05/05/19 14:22 Discontinued IV 999 mls/hr 0.9% Sodium Chloride Inj [Ns] 1,000 ml Med 05/05/19 16:08 Discontinued IV 999 mls/hr Clonidine [Catapres] Med 05/05/19 14:22 Discontinued 0.2 mg PO NOW ONE Lorazepam [Ativan] Med 05/05/19 14:09 Discontinued 2 mg IV NOW ONE Mvi [M.v.i.-12] 10 ml Med 05/05/19 14:10 Discontinued Folic Acid 1 mg Magnesium Sulfate 1 gm Thiamine 100 mg 0.9% Sodium Chloride Inj [Ns] 1,000 ml IV NOW Nicotine Patch [Nicoderm Patch] Med 05/05/19 15:22 Discontinued 21 mg TD NOW ONE Ondansetron [Zofran] Med 05/05/19 14:25 Discontinued 8 mg IM NOW ONE Ondansetron [Zofran] Med 05/05/19 15:01 Discontinued 8 mg IV NOW ONE Elevated liver enzymes, AG; BAL 168; vitals stable, pt resting comfortably after 2 mg Ativan Result Diagrams: 05/05/19 14:44 05/05/19 14:44 - EKG 1 Time of EKG reading by physician:: 14:14 EKG Read and Signed by:: Ashleigh Muñoz EKG Interpretation (*Must complete 3 of following elements*): Normal Rate: 83 Rhythm: sinus with sinus arrhytmia [place]: normal QRS: normal MI Interval: normal ST Wave: normal - CONSULTS/PCP/HOSPITALIST Notification #1 *Consult/PCP/Hospitalist*: Yi Time Discussed: 16:54 Consult Disposition: Admit Departure - Departure Date of Disposition Decision: 05/05/19 Time of Disposition Decision: 17:09 DIAGNOSIS: Alcohol withdrawal Disposition: ADMITTED INPATIENT 09 Certified Medical Emergency: Emergent Condition: Fair Referrals and Follow-Ups: Franco Stockton Jr, MD [Primary Care Provider] - - Critical Care Note This patient required my direct & personal management of CC.: No Attestation - Physician/ TOMMIE Attestation Patient care was provided by Advanced Practice Provider:: No The physician spent face to face time with patient:: Yes Advanced Practice Provider documentation review:: Supervising physician onsite and consulted in the evaluation and care of this patient. The physician did have a face to face encounter with the patient.
[2019-05-05] MEDS: ZOFRAN IM ONE ×2 (14:25→14:55)
[2019-05-05] MEDS ORDERED: ZOFRAN IV ONE (15:01)
[2019-05-05 15:06] LABS: BASO# 0.02 X1000 (0.0-0.2); BASO% 0.3 % (0.0-0.8); EOS# 0.01 X1000 (0.0-0.7); EOS% 0.2 % (0.0-10.0); HEMATOCRIT 50.6 % (42.0-52.0); HEMOGLOBIN 18.5 g/dL (14.0-18.0); LYMPH% 17.3 % (20.5-51.1); MCH 34.7 PG (27-31); MCHC 36.6 g/dL (33-37); MCV 94.9 FL (81-99); MONO# 0.61 X1000 (0.11-0.59); MONO% 10.5 % (1.7-9.3); NEUT# 4.15 X1000 (1.4-6.5); NEUT% 71.7 % (42.2-75.2); PLT 120 X1000 (130-400); RBC 5.33 XMIL (4.7-6.1); WBC 5.79 X1000 (4.8-10.8)
[2019-05-05 15:19] LABS: URINE SOURCE CLEAN CATCH
[2019-05-05 15:20] LABS: AGAP 24; ALB/GLOB RATIO 1.3; ALBUMIN 4.5 g/dL (3.5-5.0); ALKALINE PHOSPHATASE 94 U/L (32-122); BUN 9 mg/dL (8-22); CALCIUM 9.5 mg/dL (8.8-10.2); CHLORIDE 96 mmol/L (98-107); COSMO 280; CREATININE 0.5 mg/dL (0.7-1.2); ESTIMATED GFR > 60; GLUCOSE 107 mg/dL (70-104); GOT 352 U/L (10-34); GPT 174 U/L (10-44); SODIUM 141 mmol/L (136-145); TCO2 21 mmol/L (25-35); TOTAL BILIRUBIN 0.99 mg/dL (0.20-1.00); TOTAL PROTEIN 8.1 g/dL (6.3-8.3)
[2019-05-05] MEDS ORDERED: NICODERM PATCH TD ONE (15:22)
[2019-05-05 15:27] LABS: BILIRUBIN URINE NEGATIVE (NEGATIVE); BLOOD URINE TRACE (NEGATIVE); COLOR YELLOW; GLUCOSE URINE NEGATIVE (NEGATIVE); KETONE URINE 60 mg/dL (NEGATIVE); LEUKOCYTES URINE NEGATIVE (NEGATIVE); NITRITE URINE NEGATIVE (NEGATIVE); PROTEIN URINE 100 mg/dL (NEGATIVE); SP GRAVITY URINE 1.027; TURBIDITY URINE CLEAR (CLEAR); UROBILINOGEN URINE 2 mg/dL (NORMAL)
[2019-05-05 15:33] LABS: UR EPITHELIAL CELLS <10 /HPF (<10); URINE BACTERIA NEGATIVE /HPF; URINE RBC <10 /HPF (<10); URINE WBC <10 /HPF (<10)
[2019-05-05 15:41] LABS: URINE CASTS NONE SEEN; URINE CRYSTALS NONE SEEN; URINE YEAST NONE SEEN
[2019-05-05 15:58] LABS: UR AMPHETAMINES QUAL NONE DETECTED (NONE DETECT); UR BARBITUATES QUAL NONE DETECTED (NONE DETECT); UR BENZODIAZEPIN QUAL PRESUMPTIVE POSITIVE (NONE DETECT); UR CANNABINOIDS QUAL PRESUMPTIVE POSITIVE (NONE DETECT); UR COCAINE QUAL NONE DETECTED (NONE DETECT); UR METHADONE QUAL NONE DETECTED (NONE DETECT); UR OPIATES QUAL NONE DETECTED (NONE DETECT); UR OXYCODONE QUAL NONE DETECTED (NONE DETECT); UR PCP QUAL NONE DETECTED (NONE DETECT)
[2019-05-05 16:05] LABS: TSH 0.79 uIUmL (0.27-4.20)
[2019-05-05] MEDS ORDERED: ROBAXIN PO PRN (19:01)
[2019-05-05] MEDS ORDERED: ATARAX PO PRN (19:01)
[2019-05-05] MEDS ORDERED: BENTYL PO PRN (19:01)
[2019-05-05] MEDS ORDERED: VALIUM IV ONE (19:05)
--- NOTE | 2019-05-05 23:51 | HISTORY AND PHYSICAL ---
ADDENDUM: I have seen and examined Mr. Stratton, who presented to the emergency department today because of withdrawal symptoms. Mr. Stratton is known to binge on alcohol, was just discharged from the hospital on 04/10/2019 for the same symptoms. His current vitals seem to be fairly stable, blood pressure is 128/79, pulse is 71, respiration is 18. Patient is obviously shaking with tremors everywhere. He seems slightly diaphoretic. He is clearly showing active withdrawal symptoms. We are going to get him 10 mg of IV Valium and transfer him to the ICU and put him on p.r.n. Ativan. Once he gets more awake we will use the Librium taper for the alcohol withdrawal. We will also replace all his electrolyte abnormalities and we will hydrate him overnight. Please refer to the details of the history and physical that has been dictated by the WHITE KID BUFFER in the chart. cc: Paul Santiago MD
[2019-05-06] MEDS: NS 1,000 ML IV SCH ×4 (00:09→06:35)
--- NOTE | 2019-05-06 00:09 | HISTORY AND PHYSICAL ---
CHIEF COMPLAINT: Alcohol withdrawal. HISTORY OF PRESENT ILLNESS: This is a 48-year-old gentleman with a history of alcohol use and abuse, who was recently admitted to the hospital and being discharged 04/10/2019 for alcohol withdrawal. He presents today complaining of abdominal pain, nausea, vomiting, and generalized body tremors. He says he usually drinks 10 to 12 beers a day although he states over the last week he has drank much more than that. He was found to have a blood alcohol of 168 in the emergency room that was with his friend stating that his last drink was about 6 hours prior to coming to the ER. He denies any black or bloody vomitus or stools. He denies any audio or visual hallucinations. PAST MEDICAL HISTORY: 1. Alcohol use and abuse. 2. Hypertension. 3. Diabetes mellitus type 2. 4. Chronic back pain. 5. Benzodiazepine use which he does buy off the streets. PAST SURGICAL HISTORY: Back surgery. SOCIAL HISTORY: He drinks alcohol. He smokes 1 to 2 packs cigarettes a day. He uses marijuana daily when he can get it. He used to use meth but he states it has been quite some time. ALLERGIES: Meloxicam which causes a rash. REVIEW OF SYSTEMS: Discussed patient with pertinent positives stated in HPI. He denies any syncope or dizziness, any chest pain, palpitations, productive cough, fever, chills, night sweats, any constipation, black or bloody vomitus or stools, hematuria, dysuria, frequency urgency. PHYSICAL EXAMINATION: GENERAL: This is a 48-year-old gentleman who is sitting up in the stretcher in the ER. VITAL SIGNS: Blood pressure is 122/78, heart rate of 66, respirations are 20, temperature is 97.8 degrees oral with O2 saturations 94 to 95%. HEENT: Head is normocephalic, atraumatic. Mucous membranes are moist. NECK: Supple. Trachea midline. He has no JVD. CARDIOVASCULAR: Regular rate and rhythm. S1, S2 appreciated. No murmurs. Calves are nontender bilateral with peripheral pulses palpable x4 extremities. PULMONARY: Breath sounds clear. No increased work of breathing noted. Chest rises and falls symmetric respiration. GASTROINTESTINAL: Soft, nontender, nondistended. Bowel sounds in all 4 quadrants. GENITOURINARY: He has no CVA or suprapubic tenderness. SKIN: Warm and dry. NEUROLOGIC: He is alert, oriented, he does have tremors noted to extremities. LABS: WBC is 5.7 with hemoglobin 18.5, hematocrit 50.6, with platelets of 120,000. Sodium 141, potassium 4, BUN 9, creatinine 0.5 with glucose of 107. Urinalysis is essentially negative. Urine drug screen is presumptive positive for benzodiazepines and cannabinoids with blood alcohol 168. ASSESSMENT AND PLAN: 1. Acute alcohol withdrawal. 2. High anion gap metabolic acidosis. 3. Nausea, vomiting, diarrhea secondary to alcohol withdrawal. 4. Diabetes type 2 with noncompliance. 5. Hypertension with noncompliance. 6. Cannabinoid use. 7. Elevated liver function tests. 8. Deep vein thrombosis prophylaxis. Will avoid any anticoagulation as we are unsure of varices. We will use SCDs. 9. Gastrointestinal prophylaxis will use Prilosec. The patient will be admitted to ICU, placed on telemetry for close monitoring. n.p.o. at present. continue with IV hydration, giving a banana bag alternating with saline. CBC, CMP and magnesium in the morning. high dose Librium taper with Bentyl, Atarax and Robaxin p.r.n., Ativan 1 mg q.2 hours p.r.n. giving Valium 10 mg IV x1 now. Plan was discussed with Dr. Santiago, further treatments pending hospital course. Dictated by AISSATOU Orellana for Paul Santiago MD cc: AISSATOU Orellana MD [facility]
[2019-05-06] MEDS: ATIVAN IV PRN ×11 (00:10→22:46)
[2019-05-06] MEDS: LIBRIUM PO SCH ×6 (00:10→20:51)
[2019-05-06 06:39] LABS: BASO# 0.02 X1000 (0.0-0.2); BASO% 0.4 % (0.0-0.8); EOS# 0.08 X1000 (0.0-0.7); EOS% 1.6 % (0.0-10.0); HEMATOCRIT 44.7 % (42.0-52.0); LYMPH% 29.2 % (20.5-51.1); MCH 34.7 PG (27-31); MCHC 35.8 g/dL (33-37); MONO# 0.52 X1000 (0.11-0.59); MONO% 10.1 % (1.7-9.3); MPV 10.1 FL (7.4-10.4); NEUT# 3.01 X1000 (1.4-6.5); NEUT% 58.7 % (42.2-75.2); PLT 76 X1000 (130-400); RBC 4.61 XMIL (4.7-6.1); RDW 12.9 % (11.5-14.5); WBC 5.13 X1000 (4.8-10.8)
[2019-05-06] MEDS ORDERED: PRILOSEC PO SCH (07:00)
[2019-05-06 07:12] LABS: AGAP 19; ALB/GLOB RATIO 1.2; ALBUMIN 3.4 g/dL (3.5-5.0); ALKALINE PHOSPHATASE 65 U/L (32-122); BUN 9 mg/dL (8-22); CALCIUM 7.6 mg/dL (8.8-10.2); CHLORIDE 105 mmol/L (98-107); COSMO 280; CREATININE 0.6 mg/dL (0.7-1.2); ESTIMATED GFR > 60; GLUCOSE 58 mg/dL (70-104); GOT 165 U/L (10-34); GPT 105 U/L (10-44); MAGNESIUM 1.3 mg/dL (1.5-2.7); POTASSIUM 3.5 mmol/L (3.5-5.1); SODIUM 142 mmol/L (136-145); TCO2 18 mmol/L (25-35); TOTAL BILIRUBIN 1.06 mg/dL (0.20-1.00); TOTAL PROTEIN 6.3 g/dL (6.3-8.3)
[2019-05-06] MEDS ORDERED: M.V.I.-12 10 ML, FOLIC ACID 1 MG, MAGNESIUM SULFATE 1 GM, THIAMINE 100 MG in NS 1,000 ML IV SCH (09:00)
--- NOTE | 2019-05-06 09:59 | PROGRESS NOTE ---
DATE: 05/06/2019 SUBJECTIVE: This morning Mr. Stratton refers to be doing a whole lot better. He said he did not sleep a whole lot by his shaking legs and he feels stronger. OBJECTIVE: Vital signs: Blood pressure is 144/86, pulse is 75, respirations 22, temperature is 97.8 degrees. The patient was saturating 95% on room air. General: Mr. Stratton is a 48-year-old gentleman. He is in bed. He did not seem to be in any cardiopulmonary distress. Mucosa is pink and moist. Anicteric. Acyanotic. Neck: Supple. Chest: Good air entry bilaterally. No crepitations. No rhonchi. Cardiovascular: Regular rate and rhythm. There are no murmurs, no rubs, no gallops. GI: Abdomen was soft, nontender. Bowel sounds present. Extremities: No pedal edema. TREER: Patient is awake, alert, oriented. He still has mild tremors upon extension of his arms. LABORATORY DATA: CBC is reviewed, is completely within normal range except for platelets of 76,000. Chemistries reviewed from yesterday. We are still pending the chemistry for today. MEDICATIONS: The patient's current medications have all been reviewed, no changes. ASSESSMENT: 1. Alcohol withdrawal. The patient is currently tolerating p.o., so he has been started on the Librium and he is getting p.r.n. Ativan. The patient's alcohol level was actually high, yet he was showing signs of withdrawal which portends a poor prognosis. 2. Alcohol use and abuse. Patient has been advised. 3. Clinical volume depletion with hemoconcentration on his CBC. The patient is on IV fluids. 4. Thrombocytopenia presumably from alcohol. 5. Alcohol induced hepatitis noted. 6. Recreational drug abuse. Patient's urine toxicology was positive for cannabinoids. He has also been using benzodiazepines. PLAN: In general Mr. Stratton seems to be doing a lot better. He is on p.o. Librium and p.r.n. Ativan. He is shaking less. He is more conversational and more rational in his thought process. We are going to start him on regular diet, continue his current regimen and reevaluate him later on today if he can be transferred out of the ICU. cc: Paul Santiago MD
[2019-05-06] MEDS: NICODERM PATCH TD SCH (13:28)
[2019-05-06] MEDS ORDERED: VALIUM IV ONE (19:58)
[2019-05-06] MEDS ORDERED: ATIVAN 20 MG in NS 190 ML IV SCH (22:45)
[2019-05-07] MEDS: ATIVAN IV PRN ×2 (00:32→02:07)
[2019-05-07] MEDS: LIBRIUM PO SCH ×2 (00:34→01:31)
[2019-05-07] MEDS ORDERED: PHENOBARBITAL IV ONE ×2 (01:18→02:29)
[2019-05-07] MEDS: NICODERM PATCH TD SCH (01:30)
[2019-05-07 03:13] VITALS: BP 147/98
--- NOTE | 2019-05-07 21:30 | DISCHARGE SUMMARY ---
ADMISSION DATE: 05/05/2019 DISCHARGE DATE: 05/07/2019 CONSULTATION DURING THIS ADMISSION: None. INVASIVE PROCEDURE DONE DURING THIS ADMISSION: None. ADMISSION DIAGNOSES: 1. Acute alcohol withdrawal. 2. High gap acidosis. 3. Nausea and vomiting. 4. Cannabis abuse. DIAGNOSES AT THE TIME OF DISCHARGE: 1. Alcohol intoxication with withdrawal symptoms. 2. Alcohol use and abuse. 3. Clinical volume depletion with hemoconcentration. 4. Thrombocytopenia secondary to alcohol use. 5. Alcohol-induced hepatitis. 6. Recreational drug abuse with urine toxicology positive for cannabinoids. PRESENTING COMPLAINT: Shaking. HISTORY OF PRESENTING COMPLAINT/HOSPITAL COURSE: Mr. Stratton is a 48-year-old gentleman, who has been admitted on multiple occasions because of alcohol abuse. He was just discharged from the hospital on 04/10/2019. As a matter of fact, he actually left against medical advice on that occasion as well. He came in because he was shaking. He did have elevated alcohol levels in his blood stream. He was even still showing signs of active withdrawal with shaking and sweats. He was admitted to the ICU and was started on the alcohol withdrawal protocol. Mr. Stratton responded very well to the treatment. He was actually started on diet the following day. He still had residual shaking, and he was being evaluated for transfer to the floor. However, in the early hours of 05/07/2009 per documentation from the ICU nurses Mr. Stratton decided to leave against medical advise. The ICU nurse and the charge nurse all tried their possible best to keep him in the hospital because of his condition. The hospitalist team, the night team, was also notified; but not withstanding all the pieces of advice given, Mr. Stratton decided to leave against medical advice. cc: Paul Santiago MD
== END 2019-05-07 03:43 | disposition left against medical advice (07) | DRG 894 ==
LOC: ED 13:54 → ICU 19:10
PROVIDERS: ATTEND Internal Medicine